=== PATIENT | female | born 1975 | race Caucasian/White ===

== ENCOUNTER → 2017-06-01 | Outpatient (CLI) | payer OTHER | END | disposition home or self-care (01) | LOC: C.PAPS 14:59 | PROVIDERS: ATTEND Physician Assistant | DX: N94.10 Unspecified dyspareunia (principal) ==

== ENCOUNTER → 2017-07-04 | Day surgery (SDC) | payer OTHER ==
[2017-06-21 07:19] VITALS: Ht 167.6 cm; Wt 75.0 kg
--- NOTE | 2017-07-02 09:14 | HISTORY & PHYSICAL EXAMINATION ---
DATE OF ADMISSION: 07/04/2017 CHIEF COMPLAINT: Endometrial mass. HISTORY OF PRESENT ILLNESS: The patient is a 41-year-old white female 4, para 4, who has noted heavy periods in the past 4 cycles. Her last period started approximately on 06/10/2017. Ultrasound done on 06/15/2017 showed a uterus of 141 mL with an endometrial lining of 19.6 mm. There appears to be a 3.5 x 1.8 x 1.0 cm mass within the uterine cavity. Ovaries were normal. The patient's last Pap smear was on 06/01/2017 and this was negative. The patient and her do not use anything for contraception as he has had a vasectomy. The patient was evaluated previously by a county surveyor due to some spotting with intercourse. They used some silver nitrate on her cervix. She does have some spotting after exercise and most of the time when she has intercourse. ALLERGIES: TO PENICILLINS AND ZITHROMAX. MEDICATIONS: She takes a 1-a-day vitamin and vitamin C. PAST SURGICAL HISTORY: She has a history of anterior cruciate ligament repair. She has also had cholecystectomy and removal of wisdom teeth. ILLNESSES: She has a history of asthma. Also, history of uterine fibroids, though no fibroids could be confirmed by the recent ultrasound. She does have a history of gestational diabetes. SOCIAL HISTORY: The patient denies smoking cigarettes. She drinks alcohol about 7 drinks per week. FAMILY HISTORY: Her mother has a history of hypercholesterolemia and hypertension as well as malignant melanoma, osteoporosis and thyroid disease. The patient also reports her mother had cervical cancer, but after discussion this is probably doubtful. Her maternal grandfather had colon cancer. PHYSICAL EXAMINATION: VITAL SIGNS: Height 5 feet 5-1/2 inches, weight 169 pounds, blood pressure 138/72. HEENT: Grossly within normal limits. NECK: Supple without masses. CHEST: Her lungs are clear with no wheezing. HEART: Regular rate and rhythm. No murmurs, gallops or rubs. BREASTS: Nontender with no masses palpable. No lymphadenopathy. ABDOMEN: Soft and nontender with no abdominal mass. PELVIC: External genitalia normal. Vagina pink and stimulated. Cervix pink and closed with no lesions visible. Uterus within normal limit size, nontender, retroverted. Adnexa nontender with no masses palpable. EXTREMITIES: No cyanosis, clubbing or edema. IMPRESSION: A 41-year-old 4, para 4 with menorrhagia and now with evidence of endometrial mass. PLAN: The patient is for hysteroscopy, dilation of the cervix and curettage with possible removal of polyp/lesion. The patient is aware of the risks of infection, bleeding, perforation of the uterus and possible need for further surgery or treatment or hospitalization. Also, risk of anesthesia. The patient is also aware that this procedure may not relieve her symptoms of postcoital spotting and spotting associated with exercise and bowel movements. LYNN
[~2017-07-04] VITALS: Ht 167.6 cm; Wt 75.0 kg
[~2017-07-04] MED LIST: ACETAMINOPHEN 325 MG TAB PO PRN; ASCA500 PO; ATROPINE SULFATE 0.1 MG/ML 5ML SYR IV PRN; CHOL2000 PO; DEXAMETHASONE SOD INJ 4 MG/ML VIAL ONE; FENTANYL CITRATE INJ 50 MCG/1 ML 2 ML VIAL IV PRN; FENTANYL CITRATE INJ 50 MCG/1 ML 2 ML VIAL ONE; IBUPROFEN 600 MG TAB PO PRN; KETOROLAC TROMETHAMINE 30 MG/ML VIAL IV. PRN; KETOROLAC TROMETHAMINE 30 MG/ML VIAL ONE; LACTATED RINGER'S 1000ML 1,000 ML IV SCH; LIDOCAINE HCL 2% 2 ML VIAL (20MG/ML) ONE; MIDAZOLAM HCL 1 MG/ML 2ML VIAL ONE; MISCCAP80 PO; MULT-506 PO; ONDANSETRON INJ 2 MG/ML 2 ML VIAL IV PRN; ONDANSETRON INJ 2 MG/ML 2 ML VIAL ONE; PROMETHAZINE HCL INJ 12.5 MG in SODIUM CHLORIDE 0.9% 50ML 50 ML IV PRN; PROPOFOL IV EMULSION 10 MG/ML 20 ML VIAL IV ONE; SODIUM CHLORIDE 0.9% 1000ML 1,000 ML IV SCH
--- NOTE | 2017-07-04 12:44 | History & Physical Bridge - SC ---
H&P Re-Evaluation Bridge Note: I have examined the patient, reviewed the History & Physical and in the interval since the performance of the History & Physical I have noted the following changes of clinical significance: No changes noted
--- NOTE | 2017-07-04 13:37 | [facility] Post Operative Brief Note ---
Immediate Operative Summary Operative Date Jul 04, 2017. Pre-Operative Diagnosis Irregular bleeding, Endometrial Mass Post-Operative Diagnosis Same Procedure(s) Performed D&C, Hysteroscopy Surgeon Dr. Rodriguez Equipment Installation Professional Surgeon(s) None Estimated Blood Loss 50cc Findings Consistent with Post-Op Diagnosis Specimens A. Endocervical Curettings B. Endometrial Curettings Drains None Anesthesia Type General Complication(s) none Disposition Disposition: Recovery Room / PACU
--- NOTE | 2017-07-04 13:51 | Discharge Instructions-SurgCtr ---
Discharge Instructions Date of Service Jul 04, 2017. Visit Reason for Visit: Irregular Bleeding, Endometrial Mass Discharge Discharge Diagnosis / Problem: s/p Hysteroscopy, D&C Discharge Goals Goal(s): Diagnostic testing, Therapeutic intervention Activity Recommendations Activity Limitations: per Instructions/Follow-up section ACTIVITY RECOMMENDATIONS: * Avoid tampons, douching, hot tubs, pools, and intercourse until bleeding has stopped. * May shower as usual. * No strenuous activity for 24-48 hours. After 24-48 hours, you may do anything you feel like doing (driving and sports are okay). SPECIAL CARE INSTRUCTIONS: Special Diet: * Mild nausea may occur in the immediate post-operative period. * Take clear liquids such as tea, cola or bouillon until all nausea has subsided; you may then resume your normal diet. Special Care: * Light bleeding and vaginal spotting can last from a few days to 3-4 weeks. Call your doctor if bleeding becomes heavier than the heaviest part of your period. * Check your temperature twice a day for one week. If it goes above 100.4 degrees Fahrenheit (38.0 Celsius), notify your doctor. Call if you develop a foul vaginal discharge or have persistent severe cramping. * Call your doctor's office for an appointment for 2-4 weeks after your surgery. - FOLLOW-UP VISIT: Call your doctor's office for an appointment for 2-4 weeks after your surgery. [phone], Dr Rodriguez Anesthesia . Post Anesthesia Instructions: If you have had General Anesthesia or IV Sedation: * Do not drive today. * Resume driving when surgeon permits. * Do not make important decisions or sign legal documents today. * Call surgeon for: 1. Temperature elevations greater than 101 degrees F. 2. Uncontrollable pain. 3. Excessive bleeding. 4. Persistent nausea and vomiting. 5. Medication intolerance (nausea, vomiting or rash). * For nausea and vomiting use only clear liquids such as: tea, soda, bouillon until nausea subsides, then gradually increase diet as tolerated. * If you have any concerns or questions, call your surgeon's office. If physician is unavailable and it is an emergency, call 911 or go to the nearest emergency room. . Instructions / Follow-Up Instructions / Follow-Up See above limitations. LS Diet Recommendations Home Diet: resume previous diet Procedures Procedures Performed: D&C, Hysteroscopy Pending Studies Studies pending at discharge: yes List of pending studies: The tissue from the D&C was sent to pathology. We will call you with that result. It takes up to a week for us to get that report. Medical Emergencies . Who to Call and When: Medical Emergencies: If at any time you feel your situation is an emergency, please call 911 immediately. . Non-Emergent Contact Non-Emergency issues call your: Data Warehouse Developer Call Non-Emergent contact if: temperature is above 100.5, your pain is worsening . . "Provider Documentation" section prepared by Tiny Rodriguez. .
--- NOTE | 2017-07-04 14:15 | OPERATIVE REPORT ---
DATE OF OPERATION: 07/04/2017 PREOPERATIVE DIAGNOSES: Irregular bleeding and endometrial mass. POSTOPERATIVE DIAGNOSES: Same. PROCEDURE: Hysteroscopy, D&C. SURGEON: Dr. Tiny Rodriguez. ANESTHESIA: General. WINDOW GLAZIER HELPER: Dr. Valdez. DESCRIPTION OF PROCEDURE: The patient was taken to the operating room where general anesthesia was administered. After an adequate level was obtained, she was placed in dorsal lithotomy position. Vulva, vagina, and cervix were prepped with Betadine solution. The patient was draped. Bladder was drained with a straight catheter. Weighted speculum was placed in the posterior fornix of the vagina. The anterior lip of the cervix was grasped with an Allis clamp. Endocervical curettings were obtained. The patient's uterus sounded to 8 cm. The cervix was noted to be markedly retroverted. Cervix was dilated enough to insert the hysteroscope. Photos were taken. There were no obvious masses, although I suspected a mass along the posterior wall. The hysteroscope was removed after photos were taken. A smooth sharp curette was then introduced into the endometrial cavity and the uterus curetted for multiple small pieces of tissue. There were some additional pieces of firmer tissue up to one cm pieces. The serrated curet was then used and the endometrial cavity curetted again. Additional tissue was obtained. The endometrial cavity was visualized once more and again there were some additional bits of tissue, some up to 1 cm in greatest dimension. These were removed as well. At the end of the procedure, the endometrial cavity was empty and the cervical canal appeared normal. There was such marked retroversion of the uterus; however, I was not able to visualize the tubal ostia. Estimated blood loss for the procedure was 50 mL. The patient was taken to the recovery room in good condition. I attest to the content of the Intraoperative Record and any orders documented therein. Any exceptions are noted below. [facility]
[2017-07-04 14:33] VITALS: TEMP 36.5
--- NOTE | 2017-07-04 14:59 | Anesthesia Progress Nt - [facility] ---
Anesthesia Post Op Note Date & Time Jul 04, 2017 at 14:59 Vital Signs Pain Intensity: 3 Vital Signs Past 12 Hours Date Time Temp Pulse Resp B/P (MAP) Pulse Ox O2 Delivery O2 Flow Rate FiO2 07/04/17 14:33 36.5 75 16 119/73 (88) 98 Room Air 07/04/17 14:23 81 21 98 07/04/17 14:23 78 21 07/04/17 14:23 78 21 07/04/17 14:23 81 21 98 07/04/17 14:21 115/75 07/04/17 14:21 115/75 07/04/17 14:21 37.2 67 14 115/75 98 Room Air 07/04/17 14:18 74 18 98 07/04/17 14:18 73 18 07/04/17 14:18 73 18 07/04/17 14:18 74 18 98 07/04/17 14:16 112/72 07/04/17 14:16 112/72 07/04/17 14:13 82 16 100 07/04/17 14:13 82 16 100 07/04/17 14:13 77 16 07/04/17 14:13 77 16 07/04/17 14:11 106/66 07/04/17 14:11 106/66 07/04/17 14:08 105 18 99 07/04/17 14:08 105 18 99 07/04/17 14:08 105 18 07/04/17 14:08 105 18 07/04/17 14:07 120/92 07/04/17 14:07 120/92 07/04/17 14:03 103 21 07/04/17 14:03 101 21 100 07/04/17 14:03 103 21 07/04/17 14:03 101 21 100 07/04/17 14:02 113/78 07/04/17 14:02 113/78 07/04/17 13:58 76 20 07/04/17 13:58 78 20 100 07/04/17 13:58 78 20 100 07/04/17 13:58 76 20 07/04/17 13:56 118/79 07/04/17 13:56 118/79 07/04/17 13:53 60 11 100 07/04/17 13:53 60 11 100 07/04/17 13:53 60 11 07/04/17 13:53 60 11 07/04/17 13:51 120/77 07/04/17 13:51 120/77 07/04/17 13:48 58 23 07/04/17 13:48 61 23 100 07/04/17 13:48 61 23 100 07/04/17 13:48 58 23 07/04/17 13:46 94/60 07/04/17 13:46 94/60 07/04/17 13:45 96/59 07/04/17 13:45 96/59 07/04/17 13:43 36.0 50 10 96/59 96 Mask 6 07/04/17 12:02 36.8 62 16 113/75 (88) 100 Room Air Notes Mental Status: alert / awake / arousable, participated in evaluation Pt Amnestic to Procedure: Yes Nausea / Vomiting: adequately controlled Pain: adequately controlled Airway Patency, RR, SpO2: stable & adequate BP & HR: stable & adequate Hydration State: stable & adequate Anesthetic Complications: no major complications apparent
[2017-07-04 15:00] VITALS: BP 108/73; PULSE 71; O2SAT 99
== END | disposition home or self-care (01) ==
LOC: X.SURG 11:49
PROVIDERS: ATTEND Obstetrics & Gynecology
DX: N92.6 Irregular menstruation, unspecified (principal); N85.8 Other specified noninflammatory disorders of uterus; N94.89 Other specified conditions associated with female genital organs and menstrual cycle; N94.10 Unspecified dyspareunia; J45.909 Unspecified asthma, uncomplicated; Z98.818 Other dental procedure status; Z88.0 Allergy status to penicillin; Z90.49 Acquired absence of other specified parts of digestive tract; Z98.890 Other specified postprocedural states; Z83.42 Family history of familial hypercholesterolemia; Z82.49 Family history of ischemic heart disease and other diseases of the circulatory system; Z80.8 Family history of malignant neoplasm of other organs or systems; Z80.49 Family history of malignant neoplasm of other genital organs